=== PATIENT | male | born 1975 | race Caucasian/White ===

== ENCOUNTER 2025-02-08 17:04 | Emergency (ER) | payer OTHER, SELFPAY ==
[2025-02-08 17:12] VITALS: BP 165/92; PULSE 102; RESP 20; TEMP 37.6; O2SAT 98; BMI 32.1
--- NOTE | 2025-02-08 17:32 | ED_ITS ---
HPI - General Adult General Chief complaint: Nausea/Vomiting Stated complaint: Vomiting, dehydration Time Seen by Provider: 02/08/25 17:24 Source: patient Mode of arrival: ambulatory Limitations: no limitations History of Present Illness HPI narrative: 49-year-old male presenting today with nausea and vomiting that is been going on since midnight last night. Patient states that he does drink alcohol daily but this has never happened before. He denies chest or abdominal pain. No blood in his vomit. He went to the [facility] earlier today where he received 1 L of normal saline, Valium, 8 mg of Zofran and a GI cocktail. He stated that he felt better momentarily but as soon as he got home his symptoms returned and he has not been able to stop dry heaving. He can not keep down any thing. He did have lab work done including chemistries, CBC and a lipase and he was told everything was normal. He does not have those results with him. Patient denies any marijuana use. Related Data Home Medications ?Medication ?Instructions ?Recorded ?Confirmed acetaminophen 325 mg tablet (Aphen) 325 mg PO Q6H PRN 02/08/25 02/08/25 bupropion HCl 300 mg 24 hr tablet, 300 mg PO DAILY 06/0302/08/25 extended release olmesartan 20 mg tablet (Benicar) 20 mg PO DAILY 02/0802/08/25 Review of Systems Status of ROS: Reports: 10 or more systems reviewed and unremarkable except as noted in History and below Exam Narrative: Exam Narrative: Well-nourished well-developed patient , very uncomfortable continuously spitting up. Alert and oriented. Answers questions appropriately. Patient speaks in full sentences without needing to catch their breath. HEENT: Normocephalic atraumatic. Pupils are equally round reactive to light. Extraocular muscles are intact. Conjunctivae are moist without any icterus noted. Moist mucous membranes. Cardiovascular: Heart is regular rate and rhythm S1 and S2 are present without any murmurs. Lungs: Clear to auscultation bilaterally no wheezes rhonchi or rales are appreciated. Patient takes deep breaths without any discomfort. Abdomen: Soft and nontender nondistended with normal bowel sounds. Extremities: Bilateral lower extremities are without edema. Skin: Well perfused without any obvious rashes. Const: Vital Signs, click to edit/add: Vital Signs - 24 hr 02/08/25 17:12 02/08/25 19:09 Temperature 99.7 F H 98.3 F Pulse Rate [Right Pulse Oximeter] 102 H 80 Respiratory Rate 20 18 Blood Pressure [Ri ght Upper Arm] 165/92 H 145/82 H Pulse Oximetry 98 94 Oxygen Delivery Me thod Room Air Room Air Course Course ED Course: IV established and patient was started on IV Ativan, normal saline and Reglan. Patient felt better after treatment. Pulse came down. Workup was unremarkable. Vital Signs Vital signs: Initial Vital Signs Temperature 99.7 F H 02/08/25 17:12 Temperature Source Temporal Artery Scan 02/08/25 17:12 Pulse Rate 102 H 02/08/25 17:12 Respiratory Rate 20 02/08/25 17:12 Blood Pressure 165/92 H 02/08/25 17:12 Blood Pressure Mean 116 H 02/08/25 17:12 Blood Pressure Position Sitting 02/08/25 17:12 Pulse Oximetry 98 02/08/25 17:12 Oxygen Delivery Method Room Air 02/08/25 17:12 Vital Signs Temperature 99.7 F H 02/08/25 17:12 Pulse Rate 102 H 02/08/25 17:12 Respiratory Rate 20 02/08/25 17:12 Blood Pressure 165/92 H 02/08/25 17:12 Pulse Oximetry 98 02/08/25 17:12 Oxygen Delivery Method Room Air 02/08/25 17:12 Temperature 98.3 F 02/08/25 19:09 Pulse Rate 80 02/08/25 19:09 Respiratory Rate 18 02/08/25 19:09 Blood Pressure 145/82 H 02/08/25 19:09 Pulse Oximetry 94 02/08/25 19:09 Oxygen Delivery Method Room Air 02/08/25 19:09 Medications Administered Medications: Discontinued Medications Generic Name Dose Route Start Last Admin Trade Name Freq PRN Reason Stop Dose Admin Sodium Chloride 1,000 mls @ 1,000 mls/hr 02/08/25 17:30 02/08/25 19:18 0.9 % Sodium Chloride 1000 Ml IV 02/08/25 18:29 Infused .Q1H HA Infusion Lorazepam 0.5 mg 02/08/25 17:32 02/08/25 18:06 Lorazepam 2 Mg/Ml Inj IVP 02/08/25 17:33 0.5 mg ONCE ONE Administration Metoclopramide HCl 10 mg 02/08/25 17:30 02/08/25 18:09 Metoclopramide Hcl 5 Mg/Ml Inj IVP 02/08/25 17:31 10 mg ONCE ONE Administration Medical Decision Making MDM Narrative Medical decision making narrative: Nausea vomiting. Treated per above. 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 Lab Data Lab results reviewed: Yes I reviewed the patient's lab results Labs: Lab Results 02/08/25 02/08/25 Range/Units 18:03 18:50 WBC 9.90 (4.50-11.00) K/uL RBC 5.03 (4.30-5.90) m/uL Hgb 15.3 (13.5-17.5) gm/dL Hct 46.7 (37.0-53.0) % MCV 93 (80-100) fL MCH 30 (26-34) pg MCHC 33 (32-36) gm/dL RDW Coeff of Bree 12.8 (11.5-15.5) % Plt Count 328 (140-440) K/uL Neut % (Auto) 81.3 H (42.0-72.0) % Lymph % (Auto) 11.7 L (20-44) % Lassen % (Auto) 5.8 (0.0-11.0) % Eos % (Auto) 0.1 (0.0-7.0) % Baso % (Auto) 0.1 (0.0-3.0) % Neut # (Auto) 8.00 H (1.7-7.0) K/uL Lymph # (Auto) 1.20 (0.90-2.90) K/uL Lassen # (Auto) 0.60 (0.00-0.90) K/UL Eos # (Auto) 0.01 (0.00-0.50) K/uL Baso # (Auto) 0.01 (0.00-0.30) K/uL Abs Immat Gran (auto) 0.10 (0.00-0.30) K/uL Imm/Tot Granulo (auto) 1.0 % Sodium 143 (135-149) mmol/L Potassium 4.0 (3.6-5.1) mmol/L Chloride 105 (96-114) mmol/L Carbon Dioxide 25 (20-32) mmol/L Anion Gap 13 (7-15) mEq/L BUN 17 (5-24) mg/dL Creatinine 0.9 (0.5-1.5) mg/dL Estimated Creat Clear 115.44 Estimated GFR 105 ml/min Glucose 126 H (60-115) mg/dL Calcium 9.1 (8.4-10.6) mg/dL Magnesium 1.6 (1.5-2.6) mg/dL Total Bilirubin 0.7 (0.1-1.5) mg/dL Direct Bilirubin 0.3 (0.0-0.5) mg/dL AST 27 (12-35) U/L ALT 31 (4-50) U/L Alkaline Phosphatase 64 (40-150) U/L Total Protein 8.0 (6.0-8.3) g/dL Albumin 4.6 (3.3-5.0) g/dL Lipase 114 (23-300) U/L Salicylates < 1.0 L (1.0-10) mg/dL Urine Opiates Screen Negative (Negative) Ur Oxycodone Screen Negative (Negative) Urine Methadone Screen Negative (Negative) Acetaminophen < 10.0 (10.0-30.0) ug/mL Ur Barbiturates Screen Negative (Negative) U Tricyclic Antidepress Negative (Negative) Ur Phencyclidine Scrn Negative (Negative) Ur Amphetamines Screen Negative (Negative) U Methamphetamines Scrn Negative (Negative) U Benzodiazepines Scrn POSITIVE A (Negative) Urine Cocaine Screen Negative (Negative) U Marijuana (THC) Screen Negative (Negative) Ur Drug Screen Comment See Note Ethyl Alcohol < 0.01 (0.01-0.03) % Discharge Plan Discharge Clinical Impression: Vomiting, Dehydration Patient Disposition: Home, Self-Care Condition: Stable 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 Continue to drink very small amounts but very frequently throughout the day. Return to the emergency department if vomit contains blood. Prescriptions: No Action bupropion HCl 300 mg tablet extended release 24 hr 300 mg PO DAILY olmesartan [Benicar] 20 mg tablet 20 mg PO DAILY acetaminophen [Aphen] 325 mg tablet 325 mg PO Q6H PRN Follow Up/Referrals: Provider,Not a Local [Primary Care Provider, Family Practice] Stand Alone Forms: MyHealth Info Instructions
[2025-02-08] MEDS: METOCLOPRAMIDE HCL 5 MG/ML INJ 10 MG IVP (18:09)
[2025-02-08 18:31] LABS: Hematocrit* 46.7 % (37.0-53.0); Hemoglobin* 15.3 gm/dL (13.5-17.5); Immature Granulocytes Abs Auto 0.10 K/uL (0.00-0.30); Immature Granulocytes Pct Auto 1.0 %; Mean Corpuscular HGB Conc 33 gm/dL (32-36); Mean Corpuscular Hemoglobin 30 pg (26-34); Mean Corpuscular Volume 93 fL (80-100); RDW Coefficient of Variation % 12.8 % (11.5-15.5); Red Blood Count* 5.03 m/uL (4.30-5.90); White Blood Count* 9.90 K/uL (4.50-11.00)
[2025-02-08 18:36] LABS: Lymphocytes Absolute Auto 1.20 K/uL (0.90-2.90); Slide Review Reflex No
[2025-02-08 18:41] LABS: Albumin* 4.6 g/dL (3.3-5.0); Chloride* 105 mmol/L (96-114)
[2025-02-08 18:42] LABS: Potassium* 4.0 mmol/L (3.6-5.1); Sodium* 143 mmol/L (135-149)
[2025-02-08 18:44] LABS: Alanine Aminotransferase* 31 U/L (4-50); Alkaline Phosphatase* 64 U/L (40-150); Anion Gap 13 mEq/L (7-15); Aspartate Amino Transferase* 27 U/L (12-35); Bilirubin Direct* 0.3 mg/dL (0.0-0.5); Bilirubin Total* 0.7 mg/dL (0.1-1.5); Blood Urea Nitrogen* 17 mg/dL (5-24); Calcium* 9.1 mg/dL (8.4-10.6); Carbon Dioxide* 25 mmol/L (20-32); Creatinine* 0.9 mg/dL (0.5-1.5); Est. Creatinine Clearance* 115.44; Estimated Glomerular Filt Rate 105 ml/min; Glucose* 126 mg/dL (60-115); Total Protein* 8.0 g/dL (6.0-8.3)
[2025-02-08 18:49] LABS: Acetaminophen* < 10.0 ug/mL (10.0-30.0); Ethanol* < 0.01 % (0.01-0.03); Salicylate* < 1.0 mg/dL (1.0-10)
[2025-02-08 19:09] VITALS: BP 145/82; PULSE 80; RESP 18; TEMP 36.8; O2SAT 94
[2025-02-08 19:19] LABS: Cannabinoid Screen Urine Negative (Negative); Methamphetamines Screen Urine Negative (Negative); Tricyclic Antidepressant Urine Negative (Negative)
== END 2025-02-08 19:41 | disposition home or self-care (01) ==
PROVIDERS: Emergency Provider Family Medicine
DX: R11.10 Vomiting, unspecified (principal); E86.0 Dehydration
CPT/HCPCS: 36415; 80048; 80076; 80143; 80179; 80306; 82077; 83690; 83735; 85025; 96361; 96374; 96375; 99284; J2060; J2765; J7030